=== PATIENT | female | born 1960 | race Caucasian/White ===

== ENCOUNTER 2016-10-24 14:15 | Emergency (ER) | payer OTHER ==
[2016-10-24 14:24] VITALS: BP 127/74; PULSE 72; TEMP 97.9; O2SAT 99
--- NOTE | 2016-10-24 14:59 | UCPHY ---
H & P Patient Type: New Smoking Status: Never smoked Time Seen by Provider: 10/24/16 14:26 HPI/ROS: CHIEF COMPLAINT: Right shoulder pain HISTORY OF PRESENT ILLNESS: 56-year-old otherwise healthy female presents complaining of right shoulder pain after lifting up her bag from the floor 3 days ago at work. Patient reports her back weight around 15 lb, she went to lift it and felt a tear in her right shoulder with pain. Patient reports she has been taking 600 mg of ibuprofen every 8 hours for the last 2 days though continues with aching in her entire shoulder. Patient denies previous shoulder injuries, she denies numbness and tingling in her arm, no elbow pain. Patient is [id number]. REVIEW OF SYSTEMS: A comprehensive 10 point review of systems is otherwise negative aside from elements mentioned in the history of present illness. (Brit Mosley) Physical Exam: GEN: Awake, alert, oriented, no acute distress, vital signs reviewed, respiratory rate 16 RESP: nl resp effort MSK: Right shoulder with no obvious deformity, no swelling or ecchymosis, no AC tenderness, with full active forward flexion, full abduction, 5/5 strength, positive Romeo. Full range of motion of elbow without tenderness, full range of motion of wrist without tenderness. 2+ radial pulses SKIN: No break in skin. (Brit Mosley) Constitutional: Initial Vital Signs Temperature (C) 36.6 C 10/24/16 14:21 Heart Rate 72 10/24/16 14:21 Blood Pressure 127/74 H 10/24/16 14:21 O2 Sat (%) 99 10/24/16 14:21 O2 Delivery Mode Room Air Allergies/Adverse Reactions: No Known Allergies Allergy (Verified 10/24/16 14:20) Home Medications: Medication Instructions Recorded Hydrocodone/APAP 5/325 [Belsano 1 tab PO Q4H PRN #10 tab 10/24/16 5/325] MDM/Departure - MDM Diagnostics: Right shoulder x-ray independently reviewed by me- IMPRESSION: Minimal degenerative change acromioclavicular joint. Otherwise unremarkable. Dictated By: Dakota Diaz MD (Brit Mosley) ED Course/Re-evaluation: The patient was evaluated and managed by the nurse practitioner, Brit Mosley. My co-signature indicates that I have reviewed this chart and I agree with the findings and plan of care as documented. I am the secondary supervising physician. (Rhina Morin) - Depart Disposition: Home, Routine, Self-Care Clinical Impression: Sprain of right shoulder Qualifiers: Encounter type: initial encounter Shoulder sprain type: unspecified sprain Qualifier Code: (S43.401A) Unspecified sprain of right shoulder joint, initial encounter Condition: Fair Instructions: Shoulder Sprain (ED), Rotator Cuff Injury (ED) Additional Instructions: Rest, ice, take 600mg of ibuprofen every 8 hours with food for 5 days. Take Belsano as needed for pain. This will cause drowsiness, do not work, drive or operate any machinery while taking this. Wear sling for comfort. Follow up with orthopedist in 3-5 days for re-evaluation. Call to schedule this appointment. Return to the emergency department for any numbness, tingling, discoloration of you limb or other concerns. Prescriptions: Hydrocodone/APAP 5/325 [Belsano 5/325] 1 tab PO Q4H PRN #10 tab PRN Reason: Pain, Moderate Referrals: Liam Hinojosa MD [Medical Doctor] - As per Instructions (orthopedist business continuity consultant) - PQRS PQRS Measurement: na (Brit Mosley)
--- NOTE | 2016-10-24 15:15 | DX ---
Right Shoulder, Three Views. HISTORY: Right shoulder pain. Injury lifting. FINDINGS: Minimal spurring is seen at the acromioclavicular joint. The acromioclavicular and coracocl avicular distances are normal. Glenohumeral articulation is unremarkable. No evidence for acute fract ure or dislocation. IMPRESSION: Minimal degenerative change acromioclavicular joint. Otherwise unremarkable.
== END 2016-10-24 15:13 | disposition home or self-care (01) ==
LOC: CED 14:15
DX: S43.401A Unspecified sprain of right shoulder joint, initial encounter (principal); X50.0XXA Overexertion from strenuous movement or load, initial encounter; Y99.0 Civilian activity done for income or pay
CPT/HCPCS: 73030-PO; A4565; G0463-PO